=== PATIENT | female | born 1975 | race Two or more races ===

== ENCOUNTER 2024-04-29 12:04 | Emergency (ER) | payer OTHER, SELFPAY ==
[2024-04-29] VITALS (8 sets, daily range): BP systolic 111–139; BP diastolic 87–93; PULSE 78–117; RESP 15–24; TEMP 36.8–37.4; O2SAT 93–98; BMI 27.1
--- NOTE | ~2024-04-29 | XR_ITS ---
EXAMINATION: XR CHEST CLINICAL INFORMATION: cough, shortness of breath, chest pain COMPARISON: None available. TECHNIQUE: 2 views of the chest were obtained. FINDINGS: No significant abnormality is noted involving the heart, lungs, mediastinum, bony thorax or soft tissues. XR/XR chest 2V IMPRESSION: Unremarkable examination. Electronically signed by: Lauren Martin MD 04/29/2024 01:35 PM [facility] [place]
--- NOTE | ~2024-04-29 | CT_ITS ---
EXAMINATION: CT ANGIOGRAM OF THE CHEST WITH AND WITHOUT CONTRAST (CT PULMONARY ANGIOGRAM FOR PE) CLINICAL INFORMATION: hypoxia COMPARISON: No pertinent prior studies are available for comparison. TECHNIQUE: Prior to contrast administration, noncontrast localization images were obtained. Subsequently, multidetector volumetric imaging was performed from the thoracic inlet to the pubic symphysis through the chest, abdomen, and pelvis following the administration of 65 mL Omnipaque 350 intravenous contrast. No contrast reaction reported Sagittal, coronal, and MIP oblique sagittal (through the chest only) reformatted images were obtained on the CT workstation, uploaded to PACS, and reviewed. This CT examination was performed using dose optimization techniques as appropriate, variously including the following: *Automated exposure control *Adjustment of mA and/or kV according to patient size (this includes techniques or standardized protocols for targeted exams where dose is matched to indication/reason for exam; i.e. extremities or head) *Use of iterative reconstruction technique Total exam dose-length product: 359 mGy-cm FINDINGS: QUALITY OF STUDY/CONTRAST BOLUS: Satisfactory. PULMONARY ARTERIES: No central or segmental pulmonary emboli. CORONARY ARTERY CALCIUM: None THORACIC AORTA: No aneurysm or dissection. LUNG: There is diffuse bronchial thickening. No significant emphysematous changes are seen. Multiple small areas of infiltrate are present in the left upper lobe in a bronchovascular distribution with more focal consolidation in the lingula adjacent to the major fissure. No right lung infiltrates are seen. PLEURA: No pleural effusion or pneumothorax. MEDIASTINUM: Normal heart size. No pericardial effusion. No hilar or mediastinal lymphadenopathy. No evidence of septal bowing or right heart strain. CHEST WALL/AXILLA: No axillary or internal mammary lymphadenopathy. OSSEOUS STRUCTURES: No acute or suspicious osseous abnormality. VISUALIZED ABDOMEN: No significant findings in the upper abdomen. A tiny hiatal hernia is present. A benign left upper pole 0.8 cm Bosniak class I renal cyst is noted which requires no additional imaging or follow up. No solid renal masses are seen. CT/CT angio chest PE protocol IMPRESSION: 1. No evidence of pulmonary emboli. 2. Left upper lobe infiltrates consistent with pneumonia with diffuse bronchial thickening. VTE: negative. Fleischner guidelines were followed. Electronically signed by: Hugo Isbell MD 04/29/2024 08:02 PM [facility]
--- NOTE | 2024-04-29 12:08 | ED.URI ---
HPI - URI/Sore Throat General Chief Complaint: Upper Respiratory Symptoms Stated Complaint: cough, chest pain, congestion, sob Time Seen by Provider: 04/29/24 16:02 Source: patient, RN notes reviewed and old records reviewed Mode of arrival: ambulatory Limitations: no limitations History of Present Illness ED Provider: Michael WELCH Narrative: 49-year-old female presents for evaluation of cough and chest pain with coughing. Patient reports that she developed a cold 1 week ago today. She and her daughter both went to urgent care with a had similar symptoms. The patient reports that she got better after a couple of days. Her symptoms worsened 2 days ago and she reports increased shortness of breath She reports severe chest pain while coughing in the center of her chest. She also reports that she has been coughing up blood since last night Denies any fevers or chills. Denies any recent travel. Denies any leg swelling. Denies any history of DVT or PE. She does have an IUD Related Data Previous Rx's ?Medication ?Instructions ?Recorded albuterol sulfate 90 mcg/actuation 2 puff inhalation Q4-6H PRN 04/29/24 aerosol inhaler shortness of breath or wheezing #8.5 grams azithromycin 250 mg tablet 250 mg PO DAILY 4 days #4 tabs 04/29/24 doxycycline hyclate 100 mg tablet 100 mg PO BID #14 tabs 04/29/24 Allergies Allergy/AdvReac Type Severity Reaction Status Date / Time lisinopril Allergy Cough Verified 04/29/24 12:11 Review of Systems Constitutional: Constitutional: Denies body ache(s), Denies chills, Denies fever(s) and Denies headache(s) Eyes: Eyes: Denies blurry vision ENT: Denies dizziness and Denies headache(s) Cardiovascular: Cardiovascular: Reports chest pain and Reports dyspnea Respiratory: Respiratory: Reports cough, Reports hemoptysis, Reports excessive phlegm production, Reports dyspnea and Reports wheezing Gastrointestinal: Gastrointestinal: Denies abdominal pain, Denies nausea and Denies vomiting Musculoskeletal: Musculoskeletal: Denies back pain Integumentary/Breasts: Skin/Breast: Denies rash Neurologic: Denies dizziness and Denies headache(s) Allergic/Immunologic: Allergic/Immunologic: Reports wheezing PMFSH Past Medical History Medical History (Updated 04/29/24 @ 20:18 by Pato Rodriguez) Hypertension Surgical History (Updated 04/29/24 @ 15:23 by Odalis Sparrow RN) H/O abdominoplasty Social History Social History Smoked in Last 30 Days: No Use of substances other than those prescribed or required for medical reasons: Yes Substance Use Type: Marijuana Advance Directives: No Advance Directives Information Provided: Yes Do you have a plan to hurt others: No Plan Patient : No Physical Exam Vital Signs: Vital Signs: Last Vital Signs Temp 98.5 F 04/29/24 18:54 Pulse 110 H 04/29/24 18:54 Resp 20 04/29/24 18:54 BP 131/87 04/29/24 18:54 Pulse Ox 98 04/29/24 18:54 O2 Del Method Room Air 04/29/24 18:54 BMI result Body Mass Index 27.1 Const: General: healthy appearing, comfortable, no acute distress, alert and awake Nutritional Appearance: well nourished Orientation/consciousness: patient oriented x3 HEENT: Head: Yes normocephalic and Yes atraumatic Eyes: Eyelids: Yes eyelids normal Conjunctivae: conjunctivae normal Sclerae: sclerae normal Corneas: corneas normal Pupils: Equal, round and reactive pupils present EOM: EOMs intact bilaterally Neck: Neck: Yes full ROM Resp: Other: Diffuse rhonchi. No significant wheeze Effort & Inspection: normal respiratory effort, able to speak in complete sentences and not labored Cardio: Rate: regular rate Rhythm: regular rhythm GI: Inspection: No distended Palpation (GI): Soft to palpation, not firm, nontender, no guarding and not rigid Skin: General skin exam: elasticity normal Neuro: General: patient oriented x3 Cranial nerves: Yes Equal, round and reactive pupils present and Yes Bilaterally intact EOM present Cognition (Neuro): normal cognition Course Course Course Narrative: This is a rapid medical exam. Deferred additional HPI, ROS, PE to primary provider. 49 yo female with history of HTN here with cough w/ hemoptysis, shortness of breath, chest pain since last evening. Has had URI symptoms for one week. No leg swelling, calf pain, Is currently taking antibiotic, prednisone from her PCP. LS coarse in triage. Will obtain labs, EKG, CXR, viral testing OLGA Ngo APRN Reevaluation(s) Reevaluation #1: Patient reports that she feels much better after DuoNeb treatment. We will take her for an ambulation trial Time: 18:12 Reevaluation #2: Patient ambulated in her oxygen saturation remained at 99%, however her heart rate increased to 140/150. I ordered a CT angiography which showed left upper lobe pneumonia. We will treat as community-acquired pneumonia. Time: 20:21 Medications Administered Discontinued Medications Generic Name Dose Route Start Last Admin Trade Name Latrice PRN Reason Stop Dose Admin Albuterol/Ipratropium 3 ml 04/29/24 16:51 04/29/24 16:58 Albuterol/Iprat 2.5/0.5mg 3 Ml Ampul.Neb INHALE 04/29/24 16:52 3 ml ONCE ONE Administration Iohexol 100 ml 04/29/24 18:56 04/29/24 18:57 Iohexol 350 Mg/Ml 100 Ml Infus..Btl IV 04/29/24 18:57 65 ml ONCE ONE Administration Medical Decision Making Medical Decision Making [facility] Narrative: 49-year-old female presents for evaluation of chest pain, cough and coughing up blood-tinged sputum. She was initially tachycardic on arrival which improved without intervention. Her chest x-ray shows no focal consolidation or infiltrates. Her viral swabs for negative. EKG shows sinus tachycardia but without ischemic changes. I added a D-dimer as I am unable to rule the patient out through PERC criteria for PE. Differential Diagnosis Differential Diagnoses: The differential diagnosis associated with the presentation includes Upper respiratory infection Pneumonia Bronchitis PE Costochondritis Viral syndrome Lab Data [facility] Lab Attestation statement: I reviewed the patient's lab results. The patient has a mild leukocytosis to 12.7 K. No anemia. Normal platelet count. No significant electrolyte abnormalities. Patient's D-dimer resultant at 222 which is below the venous thromboembolic cut off of 230 04/29/24 13:05 04/29/24 13:05 Labs: Lab Results 04/29/24 Range/Units 13:05 WBC 12.7 H (4.8-10.8) X10*3/uL RBC 4.30 (4.20-5.50) X10*6/uL Hgb 13.3 (12.0-16.0) g/dl Hct 38.8 (37.0-47.0) % MCV 90.2 (80.0-98.0) fL MCH 30.9 (27.0-33.0) pg MCHC 34.3 (31.0-35.0) g/dl RDW 12.9 (11.0-16.0) % Plt Count 382 (160-400) X10*3/uL MPV 9.1 L (9.4-12.3) fL Immature Gran % (Auto) 0.3 (0.0-0.4) % Neut % (Auto) 92.6 H (45-73) % Lymph % (Auto) 4.4 L (20-40) % Price % (Auto) 2.3 (2-11) % Eos % (Auto) 0.2 (0-4) % Baso % (Auto) 0.2 (0-2) % Lymph # (Auto) 0.6 L (1.2-4.9) X10*3/uL Price # (Auto) 0.3 (0.1-1.2) X10*3/uL Eos # (Auto) 0.0 (0.0-0.4) X10*3/uL Baso # (Auto) 0.0 (0.0-0.2) X10*3/uL Abs Immat Gran (auto) 0.04 H (0.00-0.03) X10*3/uL Absolute Neuts (auto) 11.8 H (2.0-8.3) x10*3/uL Absolute Nucleated RBC 0.000 (0.0-0.012) X10*3/uL Nucleated RBC % (auto) 0.0 (0.0-0.2) /100WBC Smear Tech's Comments VERIFIED PT 13.5 H (10.9-12.4) SEC INR 1.2 H (0.9-1.1) D-Dimer High Sensitivty 222 NG/ML Sodium 138 (135-145) mmol/L Potassium 3.8 (3.3-5.1) mmol/L Chloride 101 (96-108) mmol/L Carbon Dioxide 27 (22-29) mmol/L Anion Gap 14 (12-20) BUN 9 (9-16) mg/dL Creatinine 0.90 (0.5-1.4) mg/dL Estim Creat Clear Calc 78.8 Estimated GFR > 60 Random Glucose 121 H (60-115) mg/dL Calcium 9.7 (8.4-10.2) mg/dL Total Bilirubin 0.6 (0.0-1.0) mg/dL Direct Bilirubin 0.2 (0.0-0.5) mg/dL AST 29 (5-31) U/L ALT 27 (0-31) U/L Alkaline Phosphatase 45 (39-117) U/L Troponin I High Sens < 2.7 (<3.5-17.0) ng/L Total Protein 8.0 (6.5-8.0) g/dL Albumin 4.4 (3.5-5.0) g/dL Beta HCG, Quant < 2 mIU/mL Influenza Type A (PCR) NEGATIVE (Negative) Influenza Type B (PCR) NEGATIVE (Negative) RSV RNA Qual (PCR) NEGATIVE (Negative) SARS-CoV-2 RNA (RT-PCR) NEGATIVE (Negative) Radiology Impression Discussion of test interpretation with radiology: I have reviewed the radiologist's reading. Radiologist Impression: FINDINGS: QUALITY OF STUDY/CONTRAST BOLUS: Satisfactory. PULMONARY ARTERIES: No central or segmental pulmonary emboli. CORONARY ARTERY CALCIUM: None THORACIC AORTA: No aneurysm or dissection. LUNG: There is diffuse bronchial thickening. No significant emphysematous changes are seen. Multiple small areas of infiltrate are present in the left upper lobe in a bronchovascular distribution with more focal consolidation in the lingula adjacent to the major fissure. No right lung infiltrates are seen. PLEURA: No pleural effusion or pneumothorax. MEDIASTINUM: Normal heart size. No pericardial effusion. No hilar or mediastinal lymphadenopathy. No evidence of septal bowing or right heart strain. CHEST WALL/AXILLA: No axillary or internal mammary lymphadenopathy. OSSEOUS STRUCTURES: No acute or suspicious osseous abnormality. VISUALIZED ABDOMEN: No significant findings in the upper abdomen. A tiny hiatal hernia is present. A benign left upper pole 0.8 cm Bosniak class I renal cyst is noted which requires no additional imaging or follow up. No solid renal masses are seen. CT/CT angio chest PE protocol IMPRESSION: 1. No evidence of pulmonary emboli. 2. Left upper lobe infiltrates consistent with pneumonia with diffuse bronchial thickening. VTE: negative. Fleischner guidelines were followed. Electronically signed by: Hugo Isbell MD 04/29/2024 08:02 PM [facility] Discharge Plan Discharge Clinical Impression: Community acquired pneumonia Patient Disposition: Home, Self-Care Instructions: Community Acquired Pneumonia (ED) Additional Instructions: Your CT scan shows left-sided pneumonia. Take azithromycin and doxycycline as prescribed Use the albuterol inhaler as needed. Follow-up with your primary doctor, return for new or worsening symptoms Prescriptions: New doxycycline hyclate 100 mg tablet 100 mg PO BID Qty: 14 0RF albuterol sulfate 90 mcg/actuation HFA aerosol inhaler 2 puff inhalation Q4-6H PRN (Reason: shortness of breath or wheezing) Qty: 8.5 0RF azithromycin 250 mg tablet 250 mg PO DAILY 4 Days Qty: 4 0RF Rx Instructions: start on day 2 of therapy Print Language: Armenian
--- NOTE | 2024-04-29 12:10 | ECG_ITS ---
Test Reason : chest pain/sob Blood Pressure : / mmHG Vent. Rate : 113 BPM Atrial Rate : 113 BPM P-R Int : 148 ms QRS Dur : 074 ms QT Int : 326 ms P-R-T Axes : 051 -11 014 degrees QTc Int : 447 ms Sinus tachycardia Minimal voltage criteria for LVH, may be normal variant ( R in aVL ) Borderline ECG No previous ECGs available Referred By: Stella Ngo Electronically Signed By:Papo Nixon
[2024-04-29 13:10] LABS: Basophils Percent Auto 0.2 % (0-2); Eosinophils Percent Auto 0.2 % (0-4); Hematocrit 38.8 % (37.0-47.0); Hemoglobin 13.3 g/dl (12.0-16.0); Imm Gran Abs Auto 0.04 X10*3/uL (0.00-0.03); Imm Gran Pct Auto 0.3 % (0.0-0.4); Lymphocytes Absolute Auto 0.6 X10*3/uL (1.2-4.9); Lymphocytes Percent Auto 4.4 % (20-40); MANUAL DIFF FLAG SCAN; Mean Corpuscular HGB Conc 34.3 g/dl (31.0-35.0); Mean Corpuscular Hemoglobin 30.9 pg (27.0-33.0); Mean Corpuscular Volume 90.2 fL (80.0-98.0); Mean Platelet Volume 9.1 fL (9.4-12.3); Monocytes Absolute Auto 0.3 X10*3/uL (0.1-1.2); Monocytes Percent Auto 2.3 % (2-11); Neutrophils Absolute Auto 11.8 x10*3/uL (2.0-8.3); Neutrophils Percent Auto 92.6 % (45-73); Platelet Count 382 X10*3/uL (160-400); Red Cell Distribution Width 12.9 % (11.0-16.0); SCAN SMEAR FLAG 1; White Blood Count 12.7 X10*3/uL (4.8-10.8)
[2024-04-29 13:18] LABS: INTERNATIONAL NORM RATIO 1.2 (0.9-1.1); Prothrombin Time 13.5 SEC (10.9-12.4)
[2024-04-29 13:29] LABS: Alanine Aminotransferase 27 U/L (0-31); Albumin Level 4.4 g/dL (3.5-5.0); Alkaline Phosphatase 45 U/L (39-117); Anion Gap 14 (12-20); Aspartate Amino Transferase 29 U/L (5-31); Bilirubin Direct 0.2 mg/dL (0.0-0.5); Bilirubin Total 0.6 mg/dL (0.0-1.0); Blood Urea Nitrogen 9 mg/dL (9-16); Calcium 9.7 mg/dL (8.4-10.2); Carbon Dioxide 27 mmol/L (22-29); Chloride 101 mmol/L (96-108); Creatinine Clr Calc Pharmacy 78.8; Estimated Glomerular Filt Rate > 60; Glucose Random 121 mg/dL (60-115); Potassium 3.8 mmol/L (3.3-5.1); Sodium 138 mmol/L (135-145)
[2024-04-29 13:30] LABS: SLIDE REVIEW VERIFIED
[2024-04-29 13:42] LABS: HCG Quantitative < 2 mIU/mL; Troponin-I High Sensitivity < 2.7 ng/L (<3.5-17.0)
[2024-04-29 13:51] LABS: Influenza A PCR NEGATIVE (Negative); Influenza B PCR NEGATIVE (Negative); Resp Syncy Virus RNA Qual PCR NEGATIVE (Negative); SARS COV2 PCR INHOUSE NEGATIVE (Negative)
--- NOTE | 2024-04-29 15:27 | PC.NURSE ---
patient a&ox3, vss, group sales representative nsr 80s-90s, pt speaking in full sentences, lungs diminished throughout- course rhonchi, currently a dry cough but pt states it has been yellow with blood streaked productive. call barrios within reach, pt awaiting provider
[2024-04-29 16:54] LABS: D Dimer High Sensitivity 222 NG/ML
--- NOTE | 2024-04-29 16:56 | PC.NURSE ---
rt called for updraft
[2024-04-29] MEDS: Albuterol/Iprat 2.5/0.5MG 3 ML AMPUL.NEB INHALE (16:58)
--- NOTE | 2024-04-29 18:36 | PC.NURSE ---
pt to CT scan
[2024-04-29] MEDS: iohexoL 350 MG/ML 100 ML INFUS..BTL IV (18:57)
[2024-04-29] MEDS: Azithromycin 500 MG TABLET PO (20:38)
[2024-04-29] MEDS: Doxycycline Monohydrate 100 MG CAPSULE PO (20:38)
== END 2024-04-29 20:42 | disposition home or self-care (01) ==
PROVIDERS: Nurse Practitioner Family; Physician Assistant; Emergency Provider Emergency Medicine
DX: J18.8 Other pneumonia, unspecified organism (principal); R06.02 Shortness of breath; Z03.818 Encounter for observation for suspected exposure to other biological agents ruled out; I10 Essential (primary) hypertension; J45.909 Unspecified asthma, uncomplicated; Z79.899 Other long term (current) drug therapy
CPT/HCPCS: 0241U; 36415; 71046; 71275; 80048; 80076; 84484; 84702; 85025; 85379; 85610; 93005; 94640; 99284; 99285; Q9967

== ENCOUNTER → 2024-04-29 12:10 | Outpatient (BNV) | payer OTHER, SELFPAY | PROVIDERS: Emergency Provider Emergency Medicine; Visit Provider Internal Medicine Cardiovascular Disease | DX: R00.0 Tachycardia, unspecified (principal) | CPT/HCPCS: 93010 ==